=== PATIENT | female | born 1950 | race Caucasian/White ===

== ENCOUNTER 2016-04-02 05:29 | Emergency (ER) | payer MEDICARE ==
[2016-04-02 06:03] LABS: #Basophils 0.1 thou/uL (0.0-0.2); #Eosinphils 0.2 thou/uL (0.0-0.7); #Lymphocytes 1.3 thou/uL (1.20-3.40); #Monocytes 0.6 thou/uL (0.11-0.59); #Neutrophils 5.7 thou/uL (1.40-6.50); %Basophils 1.3 % (0.0-1.0); %Eosinophils 2.3 % (0.0-10.0); %Lymphocytes 16.2 % (21.0-51.0); %Monocytes 7.6 % (0.0-10.0); Hematocrit 44.4 % (36.0-47.0); Mean Platelet Volume 6.3 fL (7.4-10.4); Red Blood Cell (RBC) Count 4.93 mill/uL (4.20-5.40); White Blood Cell (WBC) Count 7.8 thou/uL (4.8-10.8)
[2016-04-02 06:10] LABS: PTT 24.3 SEC (22.9-36.1); Prothrombin Time 12.2 SEC (12.0-14.7)
[2016-04-02 06:14] LABS: ALT (SGPT) 59 U/L (0-55); AST (SGOT) 37 U/L (5-34); Alkaline Phosphatase 172 U/L (40-150); Anion Gap 18 mmol/L (10-20); BUN (Urea Nitrogen) 15 mg/dL (9.8-20.1); Bilirubin, Total 0.3 mg/dL (0.2-1.2); Calc. Creatinine Clearance 0 mL/min (70-130); Calcium 9.7 mg/dL (7.8-10.44); Carbon Dioxide 23 mmol/L (23-31); Chloride 101 mmol/L (98-107); Estimated GFR-MDRD 66; Globulin 3.8 g/dL (2.4-3.5)
[2016-04-02 06:25] LABS: Troponin I 0.013 ng/mL (< 0.028)
--- NOTE | 2016-04-02 08:58 | CT ---
PRELIMINARY REPORT/[facility]/EMERGENCY AFTER HOURS PROCEDURE: Addendum created by Shanell Mendoza MD on 04/02/2016 5:49 AM Central Time ([place] \[place]\ [place]) SUDHEER Manzanares was notified of these results by telephone call from Dr. Shanell Mendoza 04/02/2016 5:49 AM METAL FLOW COORDINATOR and acknowledged receipt of this notification. Initial Report created on 04/02/2016 5:48 AM Central Time ([place] \[place]\ [place]) EXAM: CT Head Without Intravenous Contrast ([id number]). CLINICAL HISTORY: The patient is a 65 years female; Signs and symptoms; Speech disturbance and weakness, facial; Slurr ed speech; Additional info: Stroke alert, right side facial droopExamination order is timed 7 5:35 AM. TECHNIQUE: Axial computed tomography images of the head/brain without intravenous contrast. COMPARISON: No relevant prior studies available. FINDINGS: BRAIN: No acute hemorrhage. Grier white differentiation is intact. No evidence of acute territorial i nfarct. There is a small likely nonacute lacunar infarct in left lentiform nucleus. There is no evid ence of hyperdense vascular sign. There is vascular calcification. No evidence of extra-axial fluid collection. No evidence of mass. No acute abnormality evident. VENTRICLES: Unremarkable as visualized. No ventriculomegaly. BONES/JOINTS: Unremarkable as visualized. No acute fracture. SOFT TISSUES: Unremarkable as visualized. SINUSES: Unremarkable as visualized. No acute sinusitis. MASTOID AIR CELLS: Unremarkable as visualized. No mastoid effusion. IMPRESSION: 1. No evidence of acute territorial infarct. No acute hemorrhage. Small left lentiform lacunar infar ct likely nonacute. Thank you for allowing us to participate in the care of your patient. Dictated and Authenticated by: Shanell Mendoza MD 04/02/2016 5:48 AM Central Time ([place] \T\ [place]) FINAL REPORT EMERGENC AFTER HOURS CT OF THE BRAIN WITHOUT CONTRAST: FINDINGS/IMPRESSION: I agree with the findings and impression given in the preliminary report per [facility] physician. No ev idence of acute intracranial abnormality. POS: [facility]
== END 2016-04-02 08:02 | disposition short-term general hospital (02) ==
LOC: NAV ERS 05:29
DX: I63.9 Cerebral infarction, unspecified (principal); I10 Essential (primary) hypertension; E78.5 Hyperlipidemia, unspecified; M06.9 Rheumatoid arthritis, unspecified; F41.9 Anxiety disorder, unspecified; Z87.891 Personal history of nicotine dependence
CPT/HCPCS: 36415; 70450; 80053; 80307; 82553; 84484; 85025; 85610; 85730; 93005